=== PATIENT | male | born 1995 | race African-American/Black ===

== ENCOUNTER 2017-05-18 10:55 | Emergency (ER) | payer OTHER ==
[~2017-05-18] VITALS: Ht 165.1 cm; Wt 68.0 kg
[~2017-05-18 10:55] MED LIST: CIPRO500 MG PO; NO MEDS; ZOFRAN4 MG PO
[2017-05-18] MEDS ORDERED: CYCLOBENZAPRINE HCL 10 MG TAB PO ONE (11:30)
[2017-05-18] MEDS ORDERED: HYDROCODONE/APAP 10MG-325MG TAB PO ONE (11:30)
[2017-05-18] MEDS ORDERED: KETOROLAC TROMETHAMINE 60 MG/2 ML VIAL IM ONE (11:30)
--- NOTE | 2017-05-18 12:01 | Diagnostic Imaging Report ---
PROCEDURE:X-RAY UNILATERAL RIBS WITH CHEST X-RAY COMPARISON:Abdominal radiograph series from 04/03/2016. INDICATIONS:CHEST PAIN RIGHT SIDE, POSSIBLE PNEUMONIA FINDINGS: 4 views of the right-sided ribs. One additional PA view of the chest. No acute displaced right rib fracture. No evidence of pneumonia on the PA view of the chest. CONCLUSION: No acute displaced right rib fracture. Dictated by: Abdullahi Medley M.D. on 05/18/2017 at 12:00 Electronically approved by: Abdullahi Medley M.D. on 05/18/2017 at 12:00
== END 2017-05-18 12:44 | disposition home or self-care (01) ==
LOC: ER 10:55
DX: R07.89 Other chest pain (principal); S29.011A Strain of muscle and tendon of front wall of thorax, initial encounter
CPT/HCPCS: 71101; 99283; J1885

== ENCOUNTER 2017-08-26 05:41 | Emergency (ER) | payer OTHER ==
[~2017-08-26] VITALS: Ht 165.1 cm; Wt 68.0 kg
--- OUTSIDE RECORDS SUMMARY | 2017-08-26 05:43 | XMS REPORT ---
Author [facility] Address Unknown Phone Unavailable Care Team Providers Care Roof Designer Name Role Phone TOMMY GOFF Unavailable Unavailable Problems This patient has no known problems. Allergies, Adverse Reactions, Alerts This patient has no known allergies or adverse reactions. Medications This patient has no known medications. Results Test Description Test Time Test Comments Text Results Atomic Results Result Comments RIBS UNILAT W/CXR [address] [address] Patient Name: CYNTHIA DICKEY MR #: [id number] : 1995 Age/Sex: 22/M Req #: [id number] Adm Physician: Ordered by: MARK BO STUDENT SUCCESS ADVISOR Report #: [id number] Location: ER Room/Bed: Procedure: [id number] DX/RIBS UNILAT W/CXR Exam Date: 05/18/17 Exam Time: 1130 REPORT STATUS: Signed PROCEDURE: X-RAY UNILATERAL RIBS WITH CHEST X-RAY COMPARISON: Abdominal radiograph series from 04/03/2016. INDICATIONS: CHEST PAIN RIGHT SIDE, POSSIBLE PNEUMONIA FINDINGS: 4 views of the right-sided ribs. One additional PA view of the chest. No acute displaced right rib fracture. No evidence of pneumonia on the PA view of the chest. CONCLUSION: No acute displaced right rib fracture. Dictated by: Omar Medley M.D. on 05/18/2017 at 12:00 Electronically approved by: Omar Medley M.D. on 05/18/2017 at 12:00 Dictated By: OMAR MEDLEY MD 1200 Transcribed By: BRENDA on 05/18/17 1200 COPY TO: MARK BO NP
--- OUTSIDE RECORDS SUMMARY | 2017-08-26 05:43 | XMS REPORT | Continuity of Care Document ---
Author Author [facility] Organization [facility] Address [address] [place] [address] Phone Unavailable Care Team Providers Care Thread Roller Name Role Phone NONSTAFF PCP Unavailable Insurance Providers Guarantor Gabrielle Will L Address [address] [place] [address] Email [email or web address] [facility] Policy Number [id number] Subscriber's Name Gabrielle Will Relationship 18 Self / Same As Patient Group Number [id number] Group Name [employer] Effective Date 14 Advance Directives Directive Response Recorded Date/Time Does the patient have an advance directive? No 04/28/13 10:08pm If yes, is advance directive on file with [facility]? No 04/28/13 10:08pm If not on file with [facility] will patient provide a copy? No 04/28/13 10:08pm Do you have a Directive to Physician? No 05/18/17 11:48am Do you have a Medical Power of Contingents Supervisor? No 05/18/17 11:48am Do you have an out of hospital Do Not Resuscitate Order? No 05/18/17 11:48am Do you have any special needs we should be aware of? No 05/18/17 11:48am Do you have a support person here with you today? Yes 05/18/17 11:48am Did patient receive Notice of Privacy Practices? Yes 05/18/17 11:48am Did patient receive patient rights and responsibilities? Yes 05/18/17 11:48am Problems Medical Problem Onset Date Status Head ache Unknown Acute Vomiting Unknown Acute Medications Current Home Medications Medication Dose Units Route Directions Days Qty Instructions Start Date No Meds Past Home Medications Medication Directions Ordered Status Ciprofloxacin Hcl (Cipro) 500 Mg Tablet, 500 Mg Oral Twice A Day Discontinued Social History Smoking Status Start Date Stop Date Never Smoker Hospital Discharge Instructions No hospital discharge instruction information available. Plan of Care Discharge Date 05/18/17 12:44pm Disposition HOME, SELF-CARE Condition at Discharge Stable Instructions/Education Provided Chest Pain - Noncardiac Forms Provided Work/School Excuse Prescriptions See Medication Section Referrals Renaldo Carr Additional Instructions/Education 1. follow up with your doctor in 1-2 days without fail 2. return to ed as needed 3. tylenol and motrin Functional Status No functional status information available. Allergies, Adverse Reactions, Alerts Allergen Type Severity Reaction Status Last Updated Morphine Allergy Intermediate RASH Active 12/30/15 Immunizations No immunization information available. Vital Signs Acute Vital Signs Vital Response Date/Time Height 5 ft 5 in 05/18/2017 11:08am Weight 150 lb 05/18/2017 11:08am Body Mass Index 25.0 kg/m^2 05/18/2017 11:08am Results No relevant diagnostic test, laboratory data and/or discharge summary information available. Procedures No procedure information available. Encounters Encounter Location Arrival/Admit Date Discharge/Depart Date Attending Provider Departed Emergency Room [facility] 05/18/17 10:55am 05/18 12:44pm TOMMY GOFF MD
[2017-08-26] MEDS ORDERED: SODIUM CHLORIDE 0.9% 1000ML 1,000 ML IV ONE (06:00)
[2017-08-26] MEDS ORDERED: MECLIZINE HCL 12.5 MG TAB PO ONE (06:00)
[2017-08-26] MEDS ORDERED: ACETAMIN/BUTALBITAL/CAFFEINE TAB PO ONE (06:00)
[2017-08-26 06:09] LABS: BASOPHILS # (AUTO) 0.1 (0.0-0.1); BASOPHILS % 0.8 % (0.0-1.0); EOSINOPHILS # (AUTO) 0.2 (0.0-0.4); EOSINOPHILS % 2.4 % (0.0-6.0); HEMATOCRIT 44.1 % (38.2-49.6); HEMOGLOBIN 15.1 g/dL (14.0-18.0); LYMPHOCYTES % 31.2 % (18.0-39.1); MEAN CORPUSCULAR HEMOGLOBIN 27.1 pg (28-32); MEAN CORPUSCULAR HGB CONC 34.2 g/dL (31-35); MEAN CORPUSCULAR VOLUME 79.2 fL (81-99); MONOCYTES # (AUTO) 0.6 (0.2-0.8); MONOCYTES % 9.7 % (4.4-11.3); NEUTROPHILS # (AUTO) 3.5 (2.1-6.9); NEUTROPHILS % 55.4 % (38.7-80.0); PLATELET COUNT 204 x10e3/uL (140-360); RED BLOOD COUNT 5.57 x10e6/uL (4.3-5.7)
[2017-08-26 06:33] LABS: CREATINE KINASE 440 IU/L (30-200)
[2017-08-26 06:36] LABS: ALANINE AMINOTRANSFERASE 29 IU/L (0-55); ALBUMIN 4.4 g/dL (3.5-5.0); ALBUMIN/GLOBULIN RATIO 1.4 (0.8-2.0); ALKALINE PHOSPHATASE 58 IU/L (40-150); ANION GAP 11.2 mmol/L (8-16); BLOOD UREA NITROGEN 18 mg/dL (7-26); BUN/CREATININE RATIO 17 (6-25); CALCIUM 9.5 mg/dL (8.4-10.2); CARBON DIOXIDE 28 mmol/L (22-29); CHLORIDE 102 mmol/L (98-107); CREATININE, SERUM 1.08 mg/dL (0.72-1.25); EST GLOMERULAR FILTRATION RATE > 60 ML/MIN (60-); GLUCOSE 89 mg/dL (74-118); POTASSIUM 4.2 mmol/L (3.5-5.1); SODIUM 137 mmol/L (136-145)
--- NOTE | 2017-08-26 06:37 | Diagnostic Imaging Report ---
EXAMINATION: Head CT HISTORY: Headache and dizziness for the last 2 days. COMPARISON: None. TECHNIQUE: Multidetector axial images were obtained without contrast from the foramen magnum to the vertex . The images were reconstructed using brain and bone algorithms. Thin section brain images were reformatted into coronal and sagittal planes. Intravenous contrast: None. Motion/streaking artifact limits the evaluation of the skull base and posterior cranial fossa. FINDINGS: Parenchyma: 1. No abnormal densities. 2. No mass or hemorrhage. No CT evidence of acute territorial vascular insult. Extra-axial spaces:No abnormal density. No extra-axial fluid collections Brain volume: Normal for age. Ventricles: No hydrocephalus or displacement. Arteries: No density suggestive of thrombus. Dural sinuses: No abnormal density. Extra-axial spaces: No abnormal density. Foramen magnum: No mass, Chiari malformation, or basilar invagination. Sella: No obvious mass. Paranasal/mastoid sinuses: Imaged portions unremarkable. Skull/Scalp: No lytic or blastic lesions. No fractures. IMPRESSION: Normal head CT. Signed by: Dr. Rosamaria Carey M.D. on 08/26/2017 6:33 AM
[2017-08-26 06:47] LABS: CLARITY,URINE CLEAR (CLEAR); COLOR,URINE YELLOW (YELLOW); LEUKOCYTE ESTERASE ,URINE NEGATIVE (NEGATIVE)
[2017-08-26 06:48] LABS: AMPHETAMINES SCREEN,URINE NEGATIVE (NEGATIVE); KETONES,URINE NEGATIVE (NEGATIVE); NITRITE,URINE NEGATIVE (NEGATIVE); PHENCYCLIDINE SCREEN,URINE NEGATIVE (NEGATIVE); PROTEIN,URINE DIPSTICK NEGATIVE (NEGATIVE)
[2017-08-26 06:49] LABS: BENZODIAZEPINES SCREEN,URINE NEGATIVE (NEGATIVE); BILIRUBIN,URINE NEGATIVE (NEGATIVE); URINE UROBILINOGEN 0.2 mg/dL (0.2 - 1)
[2017-08-26] MEDS ORDERED: KETOROLAC TROMETHAMINE 30 MG/ML VIAL IV ONE (07:00)
[2017-08-26 07:03] LABS: EPITHELIAL CELLS,URINE RARE /LPF
--- NOTE | 2017-08-26 09:19 | Diagnostic Imaging Report ---
Exam: Intracranial CTA History: Headache, dizziness, ? Subarachnoid hemorrhage. Comparison studies:Head CT from the same date. Technique: Axial images were obtained from the skull base to the vertex. Coronal and sagittal images reconstructed from the axial data. Intravenous contrast: 100 cc of Omnipaque 300. Findings: Internal carotid arteries: Patent, no abnormalities. Anterior screw arteries: Patent, no abnormalities in the A1 and A2 segments. Middle sternal arteries: Patent, no abnormalities in the M1 and proximal M2 segments. Vertebral arteries: Patent, no abnormalities on the right. Hypoplastic left vertebral artery terminates as a posterior inferior cerebellar artery (PICA) branch. Basilar artery: Patent, no abnormalities. Posterior cerebral arteries: Patent, no abnormalities. No aneurysm identified in council of Thomason. No arterial vascular malformation identified. Anatomical variants: Anterior communicating artery :Present Posterior communicating arteries: Patent bilaterally. Vertebral arteries: Dominant right vertebral artery. Hypoplastic left vertebral artery terminates as a PICA branch. Incidental findings: Mild scattered nonspecific mucosal thickening in the paranasal sinuses. 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 IMPRESSION: 1. No intracranial CTA abnormalities. 2. Specifically, no vascular malformation or council of [place]ason aneurysm identified. 3. Hypoplastic left vertebral artery. Signed by: Dr. Lance Escobar M.D. on 08/26/2017 9:16 AM
[2017-08-26] MEDS ORDERED: SODIUM CHLORIDE 0.9% 50ML 50 ML ONE (09:54)
[2017-08-26] MEDS ORDERED: IOPAMIDOL 370 MG/ML 200 ML INFUS..BTL INJ ONE (09:55)
[2017-08-26] MEDS ORDERED: TRAMADOL HCL 50 MG TAB PO STA (10:48)
[2017-08-26] MEDS ORDERED: PROMETHAZINE 12.5MG/ NACL 0.9% 12.5 MG/50 ML BAG IV STA (10:48)
--- NOTE | 2017-08-26 14:56 | Diagnostic Imaging Report ---
Exam: Intracranial MRA without IV contrast History: Dizziness, headache Comparison studies: Intracranial CTA performed on the same date. Technique: Axial 3-D [id number] with multiplanar 3-D MIP reformats. Contrast: None Findings: Internal carotid arteries: Patent, no flow abnormalities. Middle cerebral arteries: Patent, no flow abnormalities in the M1 and proximal M2 segments. Anterior sternal arteries: Patent, no flow abnormalities in the A1 and proximal A2 segments. Vertebral arteries: Patent, no flow abnormalities on the right. Small caliber left vertebral artery is beyond resolution of MRA but is visualized proximally on the CTA of the same date. Basilar artery: Patent, no flow abnormalities. Posterior cerebral arteries: Patent, no flow abnormalities. Anatomical variants: Acom: Visualized. Pcoms: Visualized bilaterally. Vertebral arteries: Right is dominant. Possibly hypoplastic left vertebral artery. IMPRESSION: 1. 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 Alternatively, if there is clinical concern for left vertebral artery dissection, recommend cervical CTA to further evaluate. 2. No other intracranial MRA abnormalities. Signed by: Dr. Lance Escobar M.D. on 08/26/2017 2:53 PM
[2017-08-26 16:34] VITALS: BP 120/71
== END 2017-08-26 16:55 | disposition home or self-care (01) ==
LOC: ER 05:41
DX: R51 Headache (principal); D57.3 Sickle-cell trait
CPT/HCPCS: 36415; 70450; 70496; 70544; 80053; 80307; 81001; 82550; 82553; 84484; 85025; 93005; 99284; J1885; J2550; J7030; Q9967